=== PATIENT | male | born 1955 | race Caucasian/White ===

== ENCOUNTER 2018-01-04 12:30 | Observation (INO) | payer OTHER ==
--- NOTE | 2018-01-04 13:51 | EDPHY ---
H & P Time Seen by Provider: 01/04/18 13:48 HPI/ROS: Chief complaint. Abdominal pain HPI. 62-year-old male presents emergency department with abdominal pain that began this morning. He was well yesterday. Initially had generalized abdominal pain and now his pain is located in the right lower quadrant. He has chills. Vomited once. No diarrhea. No urinary symptoms. His pain is worse with straightening out. No radiation to his back. Denies chest pain or shortness of breath. No previous similar symptoms. No previous abdominal surgery. ROS 10 systems were reviewed and negative with the exception of the elements mentioned in the history of present illness Past Medical/Surgical History: At GERD, hypertension Social History: , nonsmoker, no alcohol Smoking Status: Never smoked Physical Exam: General Appearance: Alert well-developed male moderate distress vital signs show a temp to be 37.9 Eyes: Pupils equal and round no pallor or injection. ENT, Mouth: Mucous membranes are moist. Respiratory: There are no retractions, lungs are clear to auscultation. Cardiovascular: Regular rate and rhythm. Gastrointestinal: Abdomen is soft with tenderness in the right lower quadrant at McBurney's point. No masses. No organomegaly Neurological: Awake and alert, sensory and motor exams grossly normal. Skin: Warm and dry, no rashes. Musculoskeletal: Neck is supple nontender. Extremities symmetrical, full range of motion. Psychiatric: Patient is oriented X 3, there is no agitation. Constitutional: Initial Vital Signs Temperature (C) 37.9 C 01/04/18 12:35 Heart Rate 91 01/04/18 12:35 Respiratory Rate 16 01/04/18 12:35 Blood Pressure 168/80 H 01/04/18 12:35 O2 Sat (%) 97 01/04/18 12:35 O2 Delivery Mode Nasal Cannula O2 (L/minute) 1 Allergies/Adverse Reactions: No Known Allergies Allergy (Unverified 06/26/13 10:42) Home Medications: Medication Instructions Recorded Unobtainable 01/04/18 Medical Decision Making - Diagnostics Imaging Results: Imaging Impressions Abdomen CT 01/04/18 14:03 Impression: Acute appendicitis. Findings and recommendations discussed with SABINO FRANCO at 1526 hour, 2017. A test result has been communicated to a licensed care provider and documented in the Last Guide Critical Result system on 01/04/2018 15:27, Message ID [id number]. CT abdomen pelvis with IV contrast reviewed by me and discussed with Radiology shows acute appendicitis Procedures: IV normal saline. Morphine for pain. Zofran for nausea ED Course/Re-evaluation: Re-evaluation 3:25 p.m. Patient and I discussed imaging and lab results. We discussed treatment plan including recommendation for surgery. He expresses understanding and IV Invanz I consulted discussed case with Dr. Pittman for General surgery who will see the patient in the emergency department Differential Diagnosis: I considered kidney stone, pyelonephritis, diverticulitis, acute appendicitis - Data Points Laboratory Results: Laboratory Results 01/04/18 13:51 01/04/18 13:51 01/04/18 01/04/18 01/04/18 15:59 13:51 13:51 WBC 20.96 10^3/uL H 10^3/uL (3.80-9.50) RBC 5.04 10^6/uL 10^6/uL (4.40-6.38) Hgb 15.1 g/dL g/dL (13.7-17.5) Hct 44.9 % % (40.0-51.0) MCV 89.1 fL fL (81.5-99.8) MCH 30.0 pg pg (27.9-34.1) MCHC 33.6 g/dL g/dL (32.4-36.7) RDW 12.7 % % (11.5-15.2) Plt Count 233 10^3/uL 10^3/uL (150-400) MPV 10.1 fL fL (8.7-11.7) Neut % (Auto) 91.7 % H % (39.3-74.2) Lymph % (Auto) 3.1 % L % (15.0-45.0) Mccreary % (Auto) 4.6 % % (4.5-13.0) Eos % (Auto) 0.0 % L % (0.6-7.6) Baso % (Auto) 0.2 % L % (0.3-1.7) Nucleat RBC Rel Count 0.0 % % (0.0-0.2) Absolute Neuts (auto) 19.22 10^3/uL H 10^3/uL (1.70-6.50) Absolute Lymphs (auto) 0.65 10^3/uL L 10^3/uL (1.00-3.00) Absolute Monos (auto) 0.96 10^3/uL H 10^3/uL (0.30-0.80) Absolute Eos (auto) 0.00 10^3/uL L 10^3/uL (0.03-0.40) Absolute Basos (auto) 0.04 10^3/uL 10^3/uL (0.02-0.10) Absolute Nucleated RBC 0.00 10^3/uL 10^3/uL (0-0.01) Immature Gran % 0.4 % % (0.0-1.1) Immature Gran # 0.09 10^3/uL 10^3/uL (0.00-0.10) Sodium 137 mEq/L mEq/L (135-145) Potassium 4.3 mEq/L mEq/L (3.3-5.0) Chloride 103 mEq/L mEq/L (97-110) Carbon Dioxide 24 mEq/l mEq/l (22-31) Anion Gap 10 mEq/L mEq/L (8-16) BUN 20 mg/dL mg/dL (7-23) Creatinine 0.9 mg/dL mg/dL (0.7-1.3) Estimated GFR > 60 Glucose 111 mg/dL H mg/dL (70-100) Calcium 10.1 mg/dL mg/dL (8.5-10.4) Urine Color YELLOW Urine Appearance CLEAR Urine pH 5.0 (5.0-7.5) Ur Specific [place] > 1.035 H (1.002-1.030) Urine Protein NEGATIVE (NEGATIVE) Urine Ketones NEGATIVE (NEGATIVE) Urine Blood NEGATIVE (NEGATIVE) Urine Nitrate NEGATIVE (NEGATIVE) Urine Bilirubin NEGATIVE (NEGATIVE) Urine Urobilinogen NEGATIVE EU EU (0.2-1.0) Ur Leukocyte Esterase NEGATIVE (NEGATIVE) Urine RBC 1-3 /hpf /hpf (0-3) Urine WBC 1-3 /hpf /hpf (0-3) Ur Epithelial Cells TRACE /lpf /lpf (NONE-1+) Urine Mucus TRACE /lpf /lpf (NONE-1+) Urine Glucose NEGATIVE (NEGATIVE) Medications Given: Discontinued Medications Sodium Chloride (Ns) 1,000 mls @ 0 mls/hr IV EDNOW ONE; Wide Open PRN Reason: Protocol Stop: 01/04/18 14:04 Last Admin: 01/04/18 14:11 Dose: 1,000 mls Ertapenem 1 gm/ Sodium (Chloride) 100 mls @ 200 mls/hr IV EDNOW ONE PRN Reason: Protocol Stop: 01/04/18 15:55 Last Admin: 01/04/18 15:59 Dose: 100 mls Morphine Sulfate (Morphine) 6 mg IVP EDNOW ONE Stop: 01/04/18 14:04 Last Admin: 01/04/18 14:11 Dose: 6 mg Ondansetron HCl (Zofran) 4 mg IVP EDNOW ONE Stop: 01/04/18 14:04 Last Admin: 01/04/18 14:11 Dose: 4 mg Departure - Departure Disposition: [facility] Acute Clinical Impression: Acute appendicitis Qualifiers: Acute appendicitis type: with localized peritonitis Qualified Code(s): K35.3 - Acute appendicitis with localized peritonitis Condition: Good Referrals: Phoenix Renae MD [Primary Care Provider] - As per Instructions
[2018-01-04] MEDS ORDERED: ONDANSETRON 4 MG/2 ML VIAL IVP ONE (14:03)
[2018-01-04] MEDS ORDERED: NS 1,000 ML IV ONE (14:03)
[2018-01-04] MEDS ORDERED: IOPAMIDOL (ISOVUE-300) 100 ML BTL ONE (14:10)
[2018-01-04 14:19] LABS: PLATELET COUNT 233 10^3/uL (150-400)
[2018-01-04] MEDS ORDERED: ERTAPENEM 1 GM in NS 100 ML IV ONE (15:26)
[2018-01-04] MEDS ORDERED: LR 1,000 ML IV ONE (16:22)
[2018-01-04] MEDS ORDERED: BUPIVACAINE 0.5% 30 ML SDV ONE (16:31)
--- NOTE | 2018-01-04 16:39 | PDGENHP ---
History and Physical - Chief Complaint abdominal pain - History of Present Illness 62yo awoke this AM with abdominal pain. Went to bed last night and was in his usual state of health. Describes the pain as RLQ, progressive and colicky. Worse with activity. Denies nausea and vomiting. Pain got worse to the point that he could no longer tolerate it. History Information - Allergies/Home Medication List Allergies/Adverse Reactions: No Known Allergies Allergy (Unverified 06/26/13 10:42) Home Medications: Unobtainable 01/04/18 [Last Taken Unknown] I have personally reviewed and updated: medical history, social history, surgical history - Past Medical History GERD, hypertension - Surgical History Reports: no pertinent surgical hx - Family History Positive for: non-pertinent - Social History Smoking Status: Never smoked Additional social history: retired, has a [employer] Review of Systems Review of Systems: ROS: 10pt was reviewed & negative except for what was stated in HPI & below Physical Exam Physical Exam: Temp Pulse Resp BP Pulse Ox 37.9 C 101 H 18 140/81 H 96 01/04/18 12:35 01/04/18 15:27 01/04/18 15:27 01/04/18 15:27 01/04/18 15:27 Constitutional: no apparent distress, appears nourished, not in pain Eyes: PERRL, anicteric sclera, EOMI Ears, Nose, Mouth, Throat: moist mucous membranes, hearing normal, ears appear normal, no oral mucosal ulcers Cardiovascular: regular rate and rhythym, no murmur, rub, or gallop, No edema Respiratory: no respiratory distress, no rales or rhonchi, clear to auscultation Gastrointestinal: normoactive bowel sounds, other (TTP in the RLQ, no rebound or guarding) Genitourinary: no bladder fullness, no bladder tenderness Skin: warm, normal color, no rashes or abrasions, no fluctuance, no induration, No mottled Musculoskeletal: full muscle strength, no muscle tenderness, normal joint ROM, no joint effusions Psychiatric: interacting appropriately, not anxious, not encephalopathic, thought process linear Lymph, Heme, Immunologic: no cervical LAD, no supraclavicular LAD Lab Data & Imaging Review 01/04/18 13:51 01/04/18 13:51 WBC 20.96 10^3/uL (3.80-9.50) H 01/04/18 13:51 RBC 5.04 10^6/uL (4.40-6.38) 01/04/18 13:51 Hgb 15.1 g/dL (13.7-17.5) 01/04/18 13:51 Hct 44.9 % (40.0-51.0) 01/04/18 13:51 MCV 89.1 fL (81.5-99.8) 01/04/18 13:51 MCH 30.0 pg (27.9-34.1) 01/04/18 13:51 MCHC 33.6 g/dL (32.4-36.7) 01/04/18 13:51 RDW 12.7 % (11.5-15.2) 01/04/18 13:51 Plt Count 233 10^3/uL (150-400) 01/04/18 13:51 MPV 10.1 fL (8.7-11.7) 01/04/18 13:51 Neut % (Auto) 91.7 % (39.3-74.2) H 01/04/18 13:51 Lymph % (Auto) 3.1 % (15.0-45.0) L 01/04/18 13:51 [place] % (Auto) 4.6 % (4.5-13.0) 01/04/18 13:51 Eos % (Auto) 0.0 % (0.6-7.6) L 01/04/18 13:51 Baso % (Auto) 0.2 % (0.3-1.7) L 01/04/18 13:51 Nucleat RBC Rel Count 0.0 % (0.0-0.2) 01/04/18 13:51 Absolute Neuts (auto) 19.22 10^3/uL (1.70-6.50) H 01/04/18 13:51 Absolute Lymphs (auto) 0.65 10^3/uL (1.00-3.00) L 01/04/18 13:51 Absolute Monos (auto) 0.96 10^3/uL (0.30-0.80) H 01/04/18 13:51 Absolute Eos (auto) 0.00 10^3/uL (0.03-0.40) L 01/04/18 13:51 Absolute Basos (auto) 0.04 10^3/uL (0.02-0.10) 01/04/18 13:51 Absolute Nucleated RBC 0.00 10^3/uL (0-0.01) 01/04/18 13:51 Immature Gran % 0.4 % (0.0-1.1) 01/04/18 13:51 Immature Gran # 0.09 10^3/uL (0.00-0.10) 01/04/18 13:51 Sodium 137 mEq/L (135-145) 01/04/18 13:51 Potassium 4.3 mEq/L (3.3-5.0) 01/04/18 13:51 Chloride 103 mEq/L (97-110) 01/04/18 13:51 Carbon Dioxide 24 mEq/l (22-31) 01/04/18 13:51 Anion Gap 10 mEq/L (8-16) 01/04/18 13:51 BUN 20 mg/dL (7-23) 01/04/18 13:51 Creatinine 0.9 mg/dL (0.7-1.3) 01/04/18 13:51 Estimated GFR > 60 01/04/18 13:51 Glucose 111 mg/dL (70-100) H 01/04/18 13:51 Calcium 10.1 mg/dL (8.5-10.4) 01/04/18 13:51 Urine Color YELLOW 01/04/18 15:59 Urine Appearance CLEAR 01/04/18 15:59 Urine pH 5.0 (5.0-7.5) 01/04/18 15:59 Ur Specific [place] > 1.035 (1.002-1.030) H 01/04/18 15:59 Urine Protein NEGATIVE (NEGATIVE) 01/04/18 15:59 Urine Ketones NEGATIVE (NEGATIVE) 01/04/18 15:59 Urine Blood NEGATIVE (NEGATIVE) 01/04/18 15:59 Urine Nitrate NEGATIVE (NEGATIVE) 01/04/18 15:59 Urine Bilirubin NEGATIVE (NEGATIVE) 01/04/18 15:59 Urine Urobilinogen NEGATIVE EU (0.2-1.0) 01/04/18 15:59 Ur Leukocyte Esterase NEGATIVE (NEGATIVE) 01/04/18 15:59 Urine RBC 1-3 /hpf (0-3) 01/04/18 15:59 Urine WBC 1-3 /hpf (0-3) 01/04/18 15:59 Ur Epithelial Cells TRACE /lpf (NONE-1+) 01/04/18 15:59 Urine Mucus TRACE /lpf (NONE-1+) 01/04/18 15:59 Urine Glucose NEGATIVE (NEGATIVE) 01/04/18 15:59 Visualized and Interpreted imaging results: Yes Interpretation: acute appendicitis Assessment & Plan Assessment: Acute appendicitis (Acute) Plan: acute appendicitis - to OR for lap appy. RBA discussed -
[2018-01-04] MEDS ORDERED: ROCURONIUM 50 MG/5 ML VIAL ONE (16:57)
[2018-01-04] MEDS ORDERED: PROPOFOL 200 MG/20 ML VIAL ONE (16:57)
[2018-01-04] MEDS ORDERED: LIDOCAINE 2% 2 ML INJ ONE (16:58)
[2018-01-04] MEDS ORDERED: DEXAMETHASONE 4 MG/ML VIAL ONE (16:58)
[2018-01-04] MEDS ORDERED: fentaNYL 100 MCG/2 ML INJ ONE ×2 (16:58)
[2018-01-04] MEDS ORDERED: SUCCINYLCHOLINE CHLORIDE 200 MG/10 ML SYR IVP ONE (16:58)
[2018-01-04] MEDS ORDERED: KETOROLAC 30 MG/1 ML SDV ONE (17:21)
[2018-01-04] MEDS ORDERED: NALOXONE HCL 0.4 MG/ML INJ IVP PRN (17:38)
[2018-01-04] MEDS ORDERED: ALBUTEROL 3 ML DEYVIAL IH PRN (17:38)
[2018-01-04] MEDS ORDERED: ACETAMINOPHEN 500 MG TAB PO PRN (17:38)
[2018-01-04] MEDS ORDERED: ONDANSETRON 4 MG/2 ML VIAL IVP PRN ×2 (17:38→17:47)
[2018-01-04] MEDS ORDERED: fentaNYL 100 MCG/2 ML INJ IVP PRN (17:38)
[2018-01-04] MEDS ORDERED: LR 500 ML IV PRN (17:38)
--- NOTE | 2018-01-04 17:38 | PDANEPAE ---
ANE History of Present Illness 62 yo male with appendicitis ANE Past Medical History - Cardiovascular History Hx Hypertension: Yes Hx Arrhythmias: No Hx Chest Pain: No Hx Coronary Artery / Peripheral Vascular Disease: No - Pulmonary History Hx COPD: No Hx Asthma/Reactive Airway Disease: No Hx Recent Upper Respiratory Infection: No Hx Oxygen in Use at Home: No Hx Sleep Apnea: No - Endocrine History Hx Diabetes: No Hyperthyroid: No - GI History GERD: moderate Hx Gastrointestinal Disorders: Yes ANE Review of Systems Review of Systems: - Systems Gastrointestinal: Reports: abdominal pain ANE Patient History - Allergies Allergies/Adverse Reactions: No Known Allergies Allergy (Unverified 06/26/13 10:42) - Home Medications Home Medications: RX: Unobtainable 01/04/18 [Last Taken Unknown] - NPO status NPO Since - Liquids (Date): 01/04/18 NPO Since - Liquids (Time): 11:00 NPO Since - Solids (Date): 01/04/18 NPO Since - Solids (Time): 10:00 - Anes Hx Anes Hx: no prior problems - Smoking Hx Smoking Status: Never smoked - Family Anes Hx Family Anes Hx: neg - N/A ANE Labs/Vital Signs - Labs Result Diagrams: 01/04/18 13:51 01/04/18 13:51 - Vital Signs Blood Pressure: 132/74 Heart Rate: 102 Respiratory Rate: 15 O2 Sat (%): 94 Height: 182.88 cm Weight: 89.811 kg ANE Physical Exam - Airway Neck exam: FROM Mallampati Score: Class 3 (short TMD, edge) - Pulmonary Pulmonary: clear to auscultation - Cardiovascular Cardiovascular: regular rate and rhythym - ASA Status ASA Status: II, E ANE Anesthesia Plan Anesthesia Plan: general endotracheal anesthesia
--- NOTE | 2018-01-04 17:38 | POSTANESTH ---
Post Anesthetic Evaluation Cardiovascular Status: Normal, Stable Respiratory Status: Normal, Stable Level of Consciousness/Mental Status: Can Participate in Eval, Mildly Sleepy, Arousable Pain Control: Adequate, Prn Tx Ordered Nausea/Vomiting Control: Adequate, Prn Tx Ordered Complications Possibly Related to Anesthesia: None Noted
[2018-01-04] MEDS ORDERED: HYDROmorphONE/DILAUDID 1 MG/ML INJ IVP PRN (17:47)
[2018-01-04] MEDS ORDERED: ACETAMINOPHEN 325 MG TAB PO PRN (17:47)
[2018-01-04] MEDS ORDERED: oxyCODONE IR 5 MG TAB PO PRN (17:47)
--- NOTE | 2018-01-04 17:47 | POSTOPPROG ---
Post Op Note Date of Operation: 01/04/18 Surgeon: Oswald Pittman Anesthesiologist: Vipin Anesthesia: GET(General Endotracheal) Pre-op Diagnosis: Appendicitis Post-op Diagnosis: same Procedure: lap appendectomy Findings: acute, non-perforated Inf/Abcess present in the surg proc area at time of surgery?: No EBL: Minimal Specimen(s): appendix
[2018-01-04] MEDS ORDERED: D5W 1/2 NS W/ 20 KCl/L 1,000 ML IV SCH (18:00)
[2018-01-04] MEDS: IBUPROFEN 600 MG TAB PO SCH (21:29)
--- NOTE | 2018-01-04 22:36 | GOP ---
DATE OF OPERATION: 01/04/2018 SURGEON: Oswald Pittman MD PRODUCTION BORING MACHINE OPERATOR: None. ANESTHESIA: General endotracheal. ANESTHESIOLOGIST: Dr. Love. PREOPERATIVE DIAGNOSIS: Acute appendicitis. POSTOPERATIVE DIAGNOSIS: Acute appendicitis. PROCEDURE PERFORMED: Laparoscopic appendectomy. FINDINGS: Acute, indurated, nonperforated appendicitis. SPECIMENS: Appendix. ESTIMATED BLOOD LOSS: 5 cc. DESCRIPTION OF PROCEDURE: The patient was greeted in the preoperative suite. Once again, risks, nohemi efits, and alternatives were discussed. Consent was signed. He was then brought back to the operati ve suite, placed on the OR table in supine position. After all anesthesia machines including SCDs we re on and functioning, World Health Organization time-out was performed, ending with all in agreement . After successful induction of general anesthesia, I entered the abdomen. The abdomen was then pre pped and draped in typical sterile fashion. I entered the abdomen via an infraumbilical cutdown, thr ough which the Veress needle was passed. I achieved pneumoperitoneum to 15 mmHg CO2, which was well tolerated by the patient. Through this, I inserted a 12 mm Visiport. Once successfully in the abdom en, I inserted 2 additional 5 mm trocars, 1 in the suprapubic, 1 in the left lower quadrant, both und er direct visualization. I then identified the appendix by tracing the taeniae inferiorly. It was i ndurated and surrounded by some murky fluid but not grossly perforated. I turned my attention 1st by taking the mesoappendix, which was done using the Harmonic Scalpel. After successfully skeletonizin g the appendix, I amputated it from the cecal base with a single fire of the Endo IRENA blue load stapl er. It was then placed in an EndoCatch bag and removed. The staple line and the mesentery were then inspected and noted to be intact and hemostatic. I irrigated the right lower quadrant as well as th e pelvis with a liter of sterile saline, noting clear effluent in the suction canister. Local anesth esia was then infiltrated into all port sites, which were removed under direct visualization. I evac uated my pneumoperitoneum. My infraumbilical stitch site was closed with an 0 Vicryl stitch, noting excellent fascial reapproximation. The skin was closed with Monocryl. Dermabond was placed. The pa tient was then extubated in the operative suite and taken to the PACU in satisfactory condition. DRAINS: None. COUNTS: All counts were reported as correct x2. /[id number]/MODL
[2018-01-05] MEDS: IBUPROFEN 600 MG TAB PO SCH (05:00)
[2018-01-05 07:40] VITALS: BP 123/72
--- NOTE | 2018-01-05 08:52 | PDDCSUM ---
Discharge Summary Discharge Summary: DISCHARGE SUMMARY Date of Admission January 04 Date of Discharge January 05 DISCHARGE DIAGNOSES -acute appendicitis HOSPITAL COURSE The patient was admitted from the ED and taken to the operating room where they underwent an uneventful laparoscopic appendectomy. They were subsequently taken to the PACU and then the general medical floor. The hospital course was uneventful, their diet was advanced to a regular diet which was well tolerated and their pain was well controlled. They were discharged home in stable condition on the morning of the DISCHARGE MEDICATIONS [id number] pain medications as needed DISPOSITION Home FOLLOW UP Follow up with me in the office in 10-14 days for a general post-operative visit
--- NOTE | 2018-01-05 08:58 | ASMTCMCOM ---
CM Note CM Note Notes: Chart reviewed. 62 year old male admitted via ED with c/o abdominal pain. Diagnosed with acute appendicitis. He had laporascopic appendectomy and has been medically cleared for discharge to home. No current needs identified. CM available should needs arise. Plan: Home no needs. Date Signed: 01/05/2018 08:58 AM Electronically Signed By:Elaina Zaragoza RN
--- NOTE | 2018-01-05 08:58 | ASMTLACE ---
LACE Length of stay for Answers: Less than 1 day current admission Acuity / Level of Answers: No Care: Did the patient have an inpatient admission? Comorbidities - select Answers: Other Notes: Gerd, HTN all that apply # of Emergency department Answers: 1-2 visits in the last 6 months Score: 2 Date Signed: 01/05/2018 08:53 AM Electronically Signed By:Elaina Zaragoza RN
[2018-01-05] MEDS ORDERED: FAMOTIDINE 20 MG TAB PO SCH (09:00)
[2018-01-05] MEDS ORDERED: IRBESARTAN 150 MG TAB PO SCH (09:00)
== END 2018-01-05 10:11 | disposition home or self-care (01) ==
LOC: FSGY 16:20 → INTOOBSV 16:21 → F1N 18:19
PROVIDERS: ADMIT Surgery; ATTEND Surgery
PROC: 0DTJ4ZZ Resection of Appendix, Percutaneous Endoscopic Approach (ICD-10-PCS; principal; 2018-01-04 17:15)
DX: K35.80 Unspecified acute appendicitis (principal); K21.9 Gastro-esophageal reflux disease without esophagitis; I10 Essential (primary) hypertension
CPT/HCPCS: 44970; 74177; 96374; 96375; 99285; G0378; J0330; J1100; J1335; J1885; J2270; J2405; J2704; J3010; Q9967